=== PATIENT | male | born 1960 | race Caucasian/White ===

== ENCOUNTER 2016-08-13 | Inpatient (IN) | payer OTHER ==
--- NOTE | 2016-08-13 00:07 | EDPHY ---
H & P Stated Complaint: left sided chest discomfort, worse tonight HPI/ROS: HPI CHIEF COMPLAINT: Left-sided chest pain described as pressure HISTORY OF PRESENT ILLNESS: This patient very pleasant 56-year-old male significant past medical history for coronary artery disease with 1 stent, followed by Dr. Rashida Calvillo, hypertension, hyperlipidemia, presents emergency room with left-sided chest discomfort he describes as a pressure sensation. Also tells me he has some left lateral arm pain. No focal weakness no numbness or tingling no neck pain or jaw pain. No headache. No pleuritic pain shortness of breath or hemoptysis. No history of PE DVT. No dyspnea on exertion. Patient tells me over the past week he has been working out not really getting much chest pain he has had intermittent "stitches" in the left side of his chest, go. He has had this before and does not think much of it. Her decided come the emergency room tonight as he had ongoing pressure in left side of his chest with left arm pain. Again concern of this came to seek medical attention after calling the cardiology service. Of note this patient did take full-dose aspirin prior to arrival. Chest pressure is 6/10 at this time. Past Medical History: Coronary artery disease hypertension, hyperlipidemia Past Surgical History: PTCA Social History: Denies daily use of drugs alcohol tobacco products, lives in [place]. Family History: Noncontributory ROS REVIEW OF SYSTEMS: A comprehensive 10 point review of systems is otherwise negative aside from elements mentioned in the history of present illness. Exam Constitutional appears well nontoxic, triage nursing summary reviewed, vital signs reviewed, awake/alert. Eyes normal conjunctivae and sclera, EOMI, PERRLA. HENT normal inspection, atraumatic, moist mucus membranes, no epistaxis, neck supple/ no meningismus, no raccoon eyes. Respiratory clear to auscultation bilaterally, normal breath sounds, no respiratory distress, no wheezing. Cardiovascular rate normal, regular rhythm, no murmur, no edema, distal pulses normal. Gastrointestinal soft, non-tender, no rebound, no guarding, normal bowel sounds, no distension, no pulsatile mass. Genitourinary no CVA tenderness. Musculoskeletal no midline vertebral tenderness, full range of motion, no calf swelling, no tenderness of extremities, no meningismus, good pulses, neurovascularly intact. Skin pink, warm, & dry, no rash, skin atraumatic. Neurologic awake, alert and oriented x 3, AAOx3, moves all 4 extremities equally, motor intact, sensory intact, CN II-XII intact, normal cerebellar, normal vision, normal speech. Psychiatric normal mood/affect. Heme/Lymph/Immune no lymphadenopathy. Differential diagnosis includes but is not limited to: ACS, atypical chest pain , pneumothorax, pneumonia, pulmonary embolism, aortic dissection, congestive heart failure, tumor, musculoskeletal pain, esophageal pain, GERD, peptic ulcer disease, pancreatitis Medical Decision Making: Plan for this patient full cardiac care unit nurse IV establishment, EKG, chest x-ray, cardiac marker, D-dimer. Full-dose aspirin has already been given by the patient will given nitroglycerin to see if this improves his chest discomfort. Of note this patient does tell me last time he had chest pressure in the emergency room he had a normal EKG and had a blockage in needed a stent. Re-evaluation: EKG interpretation by me on record in [employer] system. Impression time of EKG 12:14 a.m., sinus rhythm 55 I do not appreciate any ischemic changes on this EKG specifically no ST elevation, ST depression, T-wave abnormalities prolonged intervals. Unremarkable nonischemic EKG. ED x-ray chest one view: Cardiomegaly present. Otherwise unremarkable no acute abnormality appreciated. Image interpreted myself. 0120AM: Re-evaluation at this time is patient is chest pain-free. He did receive nitroglycerin, morphine. Resting comfortably. EKG nonischemic negative troponin negative D-dimer chest x-ray reviewed shows cardiomegaly otherwise unremarkable. I have admitted this patient to [facility] for cardiac evaluation and serial enzyme rule out. Spoke with Dr. Gagnon hospitalist service agrees to admit this patient. Patient agrees for admission. Source: Patient - Personal History Current Tetanus/Diphtheria Vaccine: Unsure Current Tetanus Diphtheria and Acellular Pertussis (TDAP): Unsure - Medical/Surgical History Hx Asthma: No Hx Chronic Respiratory Disease: No Hx Diabetes: No Hx Cardiac Disease: Yes Hx Renal Disease: No Hx Cirrhosis: No Hx Alcoholism: No Hx HIV/AIDS: No Hx Splenectomy or Spleen Trauma: No Other PMH: [place] and 1 stent 2008 - Social History Smoking Status: Never smoked Constitutional: Initial Vital Signs Temperature (C) 36.5 C 08/13/16 00:01 Heart Rate 57 L 08/13/16 00:01 Respiratory Rate 16 08/13/16 00:01 Blood Pressure 148/76 H 08/13/16 00:01 O2 Sat (%) 97 08/13/16 00:01 O2 Delivery Mode Room Air O2 (L/minute) 2 Allergies/Adverse Reactions: Penicillins Allergy (Verified 08/13/16 00:05) Home Medications: Medication Instructions Recorded ASPIRIN 08/13/16 Atorvastatin Calcium 08/13/16 Metoprolol Tartrate 08/13/16 Medical Decision Making - Data Points Laboratory Results: Laboratory Results 08/13/16 00:15 08/13/16 00:15 08/13/16 08/13/16 08/13/16 00:15 00:15 00:15 WBC 7.65 10^3/uL 10^3/uL (3.80-9.50) RBC 4.48 10^6/uL 10^6/uL (4.40-6.38) Hgb 14.2 g/dL g/dL (13.7-17.5) Hct 40.5 % % (40.0-51.0) MCV 90.4 fL fL (81.5-99.8) MCH 31.7 pg pg (27.9-34.1) MCHC 35.1 g/dL g/dL (32.4-36.7) RDW 12.9 % % (11.5-15.2) Plt Count 205 10^3/uL 10^3/uL (150-400) MPV 10.1 fL fL (8.7-11.7) Neut % (Auto) 49.5 % % (39.3-74.2) Lymph % (Auto) 40.5 % % (15.0-45.0) [place] % (Auto) 7.2 % % (4.5-13.0) Eos % (Auto) 1.8 % % (0.6-7.6) Baso % (Auto) 0.7 % % (0.3-1.7) Nucleat RBC Rel Count 0.0 % % (0.0-0.2) Absolute Neuts (auto) 3.79 10^3/uL 10^3/uL (1.70-6.50) Absolute Lymphs (auto) 3.10 10^3/uL H 10^3/uL (1.00-3.00) Absolute Monos (auto) 0.55 10^3/uL 10^3/uL (0.30-0.80) Absolute Eos (auto) 0.14 10^3/uL 10^3/uL (0.03-0.40) Absolute Basos (auto) 0.05 10^3/uL 10^3/uL (0.02-0.10) Absolute Nucleated RBC 0.00 10^3/uL 10^3/uL (0-0.01) Immature Gran % 0.3 % % (0.0-1.1) Immature Gran # 0.02 10^3/uL 10^3/uL (0.00-0.10) PT 13.6 SEC SEC (12.0-15.0) INR 1.05 (0.83-1.16) APTT 27.1 SEC SEC (23.0-38.0) D-Dimer 0.28 ug/mLFEU ug/mLFEU (0.00-0.50) Sodium 140 mEq/L mEq/L (134-144) Potassium 4.0 mEq/L mEq/L (3.5-5.2) Chloride 106 mEq/L mEq/L (97-110) Carbon Dioxide 25 mEq/l mEq/l (22-31) Anion Gap 9 mEq/L mEq/L (8-16) BUN 19 mg/dL mg/dL (7-23) Creatinine 0.8 mg/dL mg/dL (0.7-1.3) Estimated GFR > 60 Glucose 98 mg/dL mg/dL (70-100) Calcium 10.0 mg/dL mg/dL (8.5-10.4) Magnesium 1.9 mg/dL mg/dL (1.6-2.3) Total Bilirubin 0.7 mg/dL mg/dL (0.1-1.4) Conjugated Bilirubin 0.2 mg/dL mg/dL (0.0-0.5) Unconjugated Bilirubin 0.5 mg/dL mg/dL (0.0-1.1) AST 27 IU/L IU/L (17-59) ALT 44 IU/L IU/L (21-72) Alkaline Phosphatase 60 IU/L IU/L (38-126) Creatine Kinase 108 IU/L IU/L (0-224) CK-MB (CK-2) Fraction Pending Troponin I < 0.012 ng/mL ng/mL (0-0.034) NT-Pro-B Natriuret Pep 122 pg/mL pg/mL (0-125) Total Protein 7.5 g/dL g/dL (6.3-8.2) Albumin 4.5 g/dL g/dL (3.5-5.0) Lipase 154.0 IU/L IU/L (23-300) Medications Given: Discontinued Medications Sodium Chloride (Ns) 500 mls @ 0 mls/hr IV ONCE ONE PRN Reason: As Directed Stop: 08/13/16 00:14 Last Admin: 08/13/16 00:25 Dose: 500 mls Morphine Sulfate (Morphine) 2 mg IVP EDNOW ONE Stop: 08/13/16 01:01 Last Admin: 08/13/16 01:05 Dose: 2 mg Nitroglycerin (Nitrostat) 0.4 mg SL Q5M PRN PRN Reason: Chest Pain Stop: 08/13/16 00:24 Last Admin: 08/13/16 00:25 Dose: 0.4 mg Departure - Departure Disposition: [facility] Inpatient Acute Clinical Impression: Chest pain Qualifiers: Chest pain type: unspecified Qualified Code(s): R07.9 - Chest pain, unspecified Condition: Fair Referrals: Kalie Davenport [Primary Care Provider] - As per Instructions
[2016-08-13] MEDS ORDERED: NS 500 ML IV ONE (00:13)
[2016-08-13] MEDS ORDERED: NITROGLYCERIN 0.4 MG BTL SL PRN ×3 (00:13→11:50)
--- NOTE | 2016-08-13 00:16 | CPEKG ---
Heart Rate: 55 RR Interval: 1091 P-R Interval: 160 QRSD Interval: 102 QT Interval: 408 QTC Interval: 391 P [place]: 14 QRS [place]: 25 T Wave [place]: 7 EKG Severity - NORMAL ECG - EKG Impression: SINUS RHYTHM Electronically Signed By: Chad Ruffin 13-Aug-2016 20:16:53
[2016-08-13 00:22] LABS: % IMMATURE GRANULYOCYTES 0.3 % (0.0-1.1); ABSOLUTE IMMATURE GRANULOCYTES 0.02 10^3/uL (0.00-0.10); ADD DIFF? NO; ADD MORPH? NO; ADD SCAN? NO; ATYPICAL LYMPHOCYTE FLAG 0 (0-99); FRAGMENT RBC FLAG 0 (0-99); HEMATOCRIT 40.5 % (40.0-51.0); HEMOGLOBIN 14.2 g/dL (13.7-17.5); LEFT SHIFT FLG 0 (0-99); LIPEMIA HEMOLYSIS FLAG 90 (0-99); MEAN CELL HEMOGLOBIN 31.7 pg (27.9-34.1); MEAN CELL HEMOGLOBIN CONCENTR. 35.1 g/dL (32.4-36.7); MEAN CELL VOLUME 90.4 fL (81.5-99.8); MEAN PLATELET VOLUME 10.1 fL (8.7-11.7); PLATELET CLUMPS FLAG 20 (0-99); PLATELET COUNT 205 10^3/uL (150-400); RED BLOOD CELL COUNT 4.48 10^6/uL (4.40-6.38); RED CELL DISTRIBUTION WIDTH 12.9 % (11.5-15.2)
[2016-08-13 00:48] LABS: ALANINE AMINOTRANSFERASE 44 IU/L (21-72); ALBUMIN 4.5 g/dL (3.5-5.0); ALKALINE PHOSPHATASE 60 IU/L (38-126); ANION GAP 9 mEq/L (8-16); ASPARTATE AMINOTRANSFERASE 27 IU/L (17-59); BILIRUBIN,TOTAL 0.7 mg/dL (0.1-1.4); BILIRUBIN-CONJUGATED 0.2 mg/dL (0.0-0.5); BILIRUBIN-UNCONJUGATED 0.5 mg/dL (0.0-1.1); CARBON DIOXIDE 25 mEq/l (22-31); CHLORIDE 106 mEq/L (97-110); CREATININE 0.8 mg/dL (0.7-1.3); GLOMERULAR FILTRATION RATE > 60; GLUCOSE 98 mg/dL (70-100); MAGNESIUM 1.9 mg/dL (1.6-2.3); SODIUM 140 mEq/L (134-144); TOTAL PROTEIN 7.5 g/dL (6.3-8.2)
[2016-08-13 00:59] LABS: TROPONIN I < 0.012 ng/mL (0-0.034)
[2016-08-13 01:05] LABS: INR 1.05 (0.83-1.16); PROTIME(PATIENT) 13.6 SEC (12.0-15.0)
[2016-08-13 01:06] LABS: APTT 27.1 SEC (23.0-38.0)
[2016-08-13 01:23] LABS: CREATINE KINASE-MB FRACTION 1.07 ng/mL (0-3.19)
--- NOTE | 2016-08-13 03:08 | PDGENHP ---
History and Physical - Chief Complaint chest pain - History of Present Illness Patient is a 56 year old male with history of CAD (s/p PCI in 2007) who presents to the ED with complaint of L sided chest pain. Patient first noticed a "sticking" type pain in a localized spot on his left chest wall 2-3 days ago that occurred at rest, resolved without intervention after seconds. This pain occurred intermittently throughout the following days and today seemed to occur more frequently. This evening, pain seemed to be more persistent and developed into an aching sensation in his L chest. 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 Pain is not associated with dizziness/lightheadedness, palpitations, shortness of breath, diaphoresis or nausea. He does report some abdominal bloating and mild constipation symptoms over the past 1 week, which is unusual for him. He took full dose aspirin prior to coming to the ED. Of note, since his PCI in 2007, patient has had at least 2 normal stress tests ( most recently > 1 year ago). He also regularly exercises with a daily walk or elliptical use without cardiac symptoms. On arrival to the ED, patient was afebrile and hemodynamically stable. EKG showed normal sinus rhythm without ischemic changes. Labs revealed normal CBC, BMP, negative troponin and d-dimer. CXR was also unremarkable. He was then admitted for further management. History Information - Allergies/Home Medication List Allergies/Adverse Reactions: Penicillins Allergy (Verified 08/13/16 00:05) Home Medications: ASPIRIN 08/13/16 [Last Taken Unknown] Atorvastatin Calcium 08/13/16 [Last Taken Unknown] Metoprolol Tartrate 08/13/16 [Last Taken Unknown] I have personally reviewed and updated: family history, medical history, social history, surgical history - Past Medical History Additional medical history: CAD s/p PCI x 1. nephrolithiasis - Surgical History Additional surgical history: lithotripsy. knee surgery. hernia repair - Family History Positive for: diabetes type II, CAD - Social History Smoking Status: Never smoked Alcohol Use: Rarely Drug Use: None Additional social history: Patient currently works from home. Review of Systems ROS: 10pt was reviewed & negative except for what was stated in HPI & below Physical Exam Temp Pulse Resp BP Pulse Ox 36.5 C 52 L 16 125/71 H 97 08/13/16 00:01 08/13/16 01:30 08/13/16 01:30 08/13/16 01:30 08/13/16 01:30 O2 (L/minute) 2 Constitutional: no apparent distress, appears nourished, not in pain Eyes: PERRL, anicteric sclera, EOMI Ears, Nose, Mouth, Throat: moist mucous membranes, hearing normal, ears appear normal, no oral mucosal ulcers Cardiovascular: regular rate and rhythym, no murmur, rub, or gallop, pulses symmetric bilaterally, No JVD, No edema Peripheral Pulses: 2+: dorsalis-pedis (R), dorsalis-pedis (L) Respiratory: no respiratory distress, no rales or rhonchi, clear to auscultation Gastrointestinal: normoactive bowel sounds, soft, non-tender abdomen, no palpable masses, No guarding, No rebound Genitourinary: no bladder fullness, no bladder tenderness Skin: warm, normal color, no rashes or abrasions, no fluctuance, no induration, No mottled Musculoskeletal: full muscle strength, no muscle tenderness, normal joint ROM, no joint effusions Neurologic: AAOx3, sensation intact bilaterally, CN II-XII Intact, No weakness, No numbness, No facial droop Psychiatric: interacting appropriately, not anxious, not encephalopathic, thought process linear Lab Data & Imaging Review 08/13/16 00:15 08/13/16 00:15 WBC 7.65 10^3/uL (3.80-9.50) 08/13/16 00:15 RBC 4.48 10^6/uL (4.40-6.38) 08/13/16 00:15 Hgb 14.2 g/dL (13.7-17.5) 08/13/16 00:15 Hct 40.5 % (40.0-51.0) 08/13/16 00:15 MCV 90.4 fL (81.5-99.8) 08/13/16 00:15 MCH 31.7 pg (27.9-34.1) 08/13/16 00:15 MCHC 35.1 g/dL (32.4-36.7) 08/13/16 00:15 RDW 12.9 % (11.5-15.2) 08/13/16 00:15 Plt Count 205 10^3/uL (150-400) 08/13/16 00:15 MPV 10.1 fL (8.7-11.7) 08/13/16 00:15 Neut % (Auto) 49.5 % (39.3-74.2) 08/13/16 00:15 Lymph % (Auto) 40.5 % (15.0-45.0) 08/13/16 00:15 [place] % (Auto) 7.2 % (4.5-13.0) 08/13/16 00:15 Eos % (Auto) 1.8 % (0.6-7.6) 08/13/16 00:15 Baso % (Auto) 0.7 % (0.3-1.7) 08/13/16 00:15 Nucleat RBC Rel Count 0.0 % (0.0-0.2) 08/13/16 00:15 Absolute Neuts (auto) 3.79 10^3/uL (1.70-6.50) 08/13/16 00:15 Absolute Lymphs (auto) 3.10 10^3/uL (1.00-3.00) H 08/13/16 00:15 Absolute Monos (auto) 0.55 10^3/uL (0.30-0.80) 08/13/16 00:15 Absolute Eos (auto) 0.14 10^3/uL (0.03-0.40) 08/13/16 00:15 Absolute Basos (auto) 0.05 10^3/uL (0.02-0.10) 08/13/16 00:15 Absolute Nucleated RBC 0.00 10^3/uL (0-0.01) 08/13/16 00:15 Immature Gran % 0.3 % (0.0-1.1) 08/13/16 00:15 Immature Gran # 0.02 10^3/uL (0.00-0.10) 08/13/16 00:15 PT 13.6 SEC (12.0-15.0) 08/13/16 00:15 INR 1.05 (0.83-1.16) 08/13/16 00:15 APTT 27.1 SEC (23.0-38.0) 08/13/16 00:15 D-Dimer 0.28 ug/mLFEU (0.00-0.50) 08/13/16 00:15 Sodium 140 mEq/L (134-144) 08/13/16 00:15 Potassium 4.0 mEq/L (3.5-5.2) 08/13/16 00:15 Chloride 106 mEq/L (97-110) 08/13/16 00:15 Carbon Dioxide 25 mEq/l (22-31) 08/13/16 00:15 Anion Gap 9 mEq/L (8-16) 08/13/16 00:15 BUN 19 mg/dL (7-23) 08/13/16 00:15 Creatinine 0.8 mg/dL (0.7-1.3) 08/13/16 00:15 Estimated GFR > 60 08/13/16 00:15 Glucose 98 mg/dL (70-100) 08/13/16 00:15 Calcium 10.0 mg/dL (8.5-10.4) 08/13/16 00:15 Magnesium 1.9 mg/dL (1.6-2.3) 08/13/16 00:15 Total Bilirubin 0.7 mg/dL (0.1-1.4) 08/13/16 00:15 Conjugated Bilirubin 0.2 mg/dL (0.0-0.5) 08/13/16 00:15 Unconjugated Bilirubin 0.5 mg/dL (0.0-1.1) 08/13/16 00:15 AST 27 IU/L (17-59) 08/13/16 00:15 ALT 44 IU/L (21-72) 08/13/16 00:15 Alkaline Phosphatase 60 IU/L (38-126) 08/13/16 00:15 Creatine Kinase 108 IU/L (0-224) 08/13/16 00:15 CK-MB (CK-2) Fraction 1.07 ng/mL (0-3.19) 08/13/16 00:15 Troponin I < 0.012 ng/mL (0-0.034) 08/13/16 00:15 NT-Pro-B Natriuret Pep 122 pg/mL (0-125) 08/13/16 00:15 Total Protein 7.5 g/dL (6.3-8.2) 08/13/16 00:15 Albumin 4.5 g/dL (3.5-5.0) 08/13/16 00:15 Lipase 154.0 IU/L (23-300) 08/13/16 00:15 Visualized and Interpreted Chest x-ray results: Yes Chest X-Ray results: no infiltrate, normal Visualized and Interpreted EKG results: Yes EKG Interpretation: Positive for: normal sinsus rhythm (sinus rhythm at 55 bpm, no st /t wave changes) Assessment & Plan Assessment: Patient is a 56 year old male with history of cad who presents to the ED with complaint of intermittent chest pain over the past 2-3 days. Plan: # chest pain Patient's description of his symptoms does not sound like typical cardiac chest pain, however, given pt's cardiac history will rule out cardiac etiology with serial cardiac enzymes, telemetry monitoring, EKGs. If ACS ruled out, will further risk stratify with exercise stress test in am. GERD vs abdominal distention due to mild constipation is also a possible etiology. # history of CAD Will continue home aspirin and b-milvia as inpatient. # dispo: admit to observation status for chest pain # gen: NPO full code
[2016-08-13] MEDS ORDERED: ASPIRIN EC 325 MG TAB PO ONE (11:50)
[2016-08-13] MEDS ORDERED: diphenhydrAMINE 25 MG CAP PO ONE (11:50)
[2016-08-13] MEDS ORDERED: DIAZEPAM 5 MG TAB PO ONE (11:50)
[2016-08-13] MEDS ORDERED: methylPREDNISolone SOD SUCC 125 MG/2 ML VIAL IVP ONE (11:52)
[2016-08-13] MEDS ORDERED: FAMOTIDINE 20 MG/NACL 50 ML IV ONE (11:52)
[2016-08-13] MEDS ORDERED: LIDOCAINE 1% 30 ML SDV ONE (12:25)
[2016-08-13] MEDS ORDERED: fentaNYL 100 MCG/2 ML INJ ONE ×3 (12:26→15:16)
[2016-08-13] MEDS ORDERED: MIDAZOLAM 2 MG/2 ML VIAL ONE ×2 (12:26→13:26)
[2016-08-13] MEDS ORDERED: IOPAMIDOL (ISOVUE-370) 150 ML BTL IV ONE ×4 (12:27→14:40)
[2016-08-13] MEDS ORDERED: BIVALIRUDIN 250 MG/5 ML VIAL IV ONE ×2 (13:13→14:10)
[2016-08-13] MEDS ORDERED: NITROGLYCERIN 1,500 MCG/15 ML VIAL MISC ONE ×2 (13:13→13:14)
--- NOTE | 2016-08-13 13:40 | PDDXCAT ---
Diagnostic Cath Note - . Date: 08/13/16 Pension Examiner: Quinn Indication: Patient w angina/susp CAD, cannot be risk stratified by other means (pt with h/o stents with abn tm and cp) - Procedure Procedure: left heart catheterization, coronary angiography, left ventriculogram - Materials Left Heart Cath size: 6F Left Heart Cath materials: standard multipack (JL4, JR4, pigtail) - Findings-Left Heart Catheterization LM: 1. mild irregs LAD: 1. mild irregs with patent prox lad stent...rich collateral supply to rca LCX: 1. mild irregs...l to r collats to rca RCA: 1. subtotal prox rca stenosis LVEF: deferred to post pci proceedure Complications: torsades VT 20 seconds post injection of rca requiring DCCV Estimated blood loss: <50ml Assessment: 1. cad with patent lad stent o/w mild irregs and subtotal rca stenosis with stenting today by dr contreras Plan: 1. interventional consult with dr contreras Patient Problems: Problems Problem Status Onset Chest pain Acute
[2016-08-13] MEDS ORDERED: PRASUGREL HCL 10 MG TAB ONE ×2 (15:07→15:30)
--- NOTE | 2016-08-13 15:24 | GCON ---
[f rep st] CONSULTATION CARDIOLOGY CONSULTATION DATE OF CONSULTATION: 08/13/2016 CHIEF COMPLAINT: Chest pain, coronary artery disease. HISTORY OF PRESENT ILLNESS: This is a 56-year-old gentleman. He was [facility] because of left-sided chest pain which had been occurring for the last week or s o. They seem to be very short any typical, although they were concerning. Patient has a history of PCI in 2007 in [place]. Apparently his presentation there was also atypical. He was advised to come the emergency room. He was admitted, where enzymes were normal. 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 He was taken to the treadmill room and did well on a tr eadmill exercise-kirby, obtaining a good heart rate and blood pressure response after approximately 9 minutes of exercise. He, however, had [address] depression in the inferior leads which rapidly re versed. He had no symptoms. I had a long conversation with him in the treadmill room regarding his findings. This is suspicious for coronary artery disease, especially given his history of prematur e atherosclerosis. We discussed both invasive and noninvasive approached. I recommended cardiac ca theterization. There is no evidence acute myocardial infarction, at least on enzymes so far, or his EKG today. The procedure, risks, benefits, complication of cardiac cath and possible intervention were discussed. There was a possible history of iodine allergy as well. He decided to progress wit coronary angiogram. He has been n.p.o. We will get this scheduled for later this afternoon. He will be given pretreatment with prednisone and H2 blockers and Benadryl. The patient understands e risks of cardiac cath and intervention and wished to proceed. ALLERGIES: Penicillin allergy. Possible iodine. MEDICATIONS: Aspirin, atorvastatin, and Lopressor. PAST MEDICAL HISTORY: He has had a history of kidney stones with lithotripsy. FAMILY HISTORY: Negative. SOCIAL HISTORY: He is a nonsmoker, nondiabetic. PHYSICAL EXAMINATION: VITAL SIGNS: Blood pressure is 120/70, heart rate in the 70s. GENERAL: He is a middle-aged male in no acute distress. HEENT: Moist oropharynx. BACK: CVA and chest wall wi thout palpable tenderness. LUNGS: Clear to auscultation and percussion. CARDIOVASCULAR: Regular rate and rhythm without murmur, gallops, rubs. LABS: White count 7, hemoglobin 14. Troponin less than 0.12. BNP 122. Potassium 4, creatinine 0. 8. ASSESSMENT: 1. Patient with premature atherosclerotic cardiovascular disease status post stenting in 2007 who h as had return of atypical chest pains which is somewhat similar to his prior presentation, who on an exercise stress test today with fairly good exercise tolerance, had ischemic ST-T wave changes with rapid resolution. We will progress to coronary angiography and possible intervention if needed. Edmond martinez understands the procedure, risks, benefits, complications, alternatives. We will pre treat with i odine allergy protocol. He understands he is at risk of PCI. 2. History of nephrolithiasis. Normal creatinine. 3. History hyperlipidemia on chronic statin therapy. PLAN: Cardiac cath this afternoon. Further care depending on the results of that test. /[id number]/MODL
[2016-08-13] MEDS ORDERED: PRASUGREL HCL 10 MG TAB PO ONE (15:46)
[2016-08-13] MEDS ORDERED: ONDANSETRON 4 MG/2 ML VIAL IVP PRN (15:46)
[2016-08-13] MEDS ORDERED: ATROPINE SULFATE 1 MG/10 ML SYR IVP PRN (15:46)
[2016-08-13] MEDS ORDERED: NS 1,000 ML IV SCH (16:00)
--- NOTE | 2016-08-13 17:21 | HOSPPROG ---
Hospitalist Progress Note Assessment/Plan: The patient experienced torsade ventricular tachycardia during his angiography and required electrical shock therapy which was successful. He had approximately 20 seconds of torsade before he received his shock. During angiography was demonstrated that his previous left anterior descending stent was open but he had a very tight right coronary artery with the few collaterals from the left. He did receive 3 stents to the right coronary artery and due to his overall findings and episode with ventricular tachycardia, his sheath is currently left in and we have transferred him to the intensive care unit. Currently in the intensive care unit still having some slight discomfort in his chest but no shortness of breath or nausea. Does not have pain in either of his feet and no pain at his groin access site but on my examination his right foot is certainly colder than his left. There is palpable pulse nothing that looks necrotic or ischemic visually and he does not have pain or tenderness there. There are no petechiae or other embolic appearing lesions. He is in a sinus rhythm with stable blood pressure at this point is making urine. He has a normal neurologic exam regular pulse, clear lungs, no edema, no JVD His groin site looks good to me. At this time will watch him in the ICU at least until his sheath can be removed ; depending on stability at that time he may potentially be able to moved to progressive care unit and but he will need to be watched carefully for any further arrhythmia or angina or any difficulty with his groin access. With his cold foot will want to watch that closely greater than 40 minutes critical care bedside time spent with patient over two visits Objective: Vital Signs Temp Pulse Resp BP Pulse Ox 36.5 C 94 15 128/74 H 97 08/13/16 07:49 08/13/16 16:32 08/13/16 16:32 08/13/16 16:32 08/13/16 16:32 08/12/16 08/13/16 08/14/16 06:59 06:59 06:59 Intake Total 500 Balance 500 PT 13.6 SEC (12.0-15.0) 08/13/16 00:15 INR 1.05 (0.83-1.16) 08/13/16 00:15 ICD10 Worksheet Patient Problems: Problems Problem Status Onset Chest pain Acute
--- NOTE | 2016-08-13 17:30 | CPIP ---
[f rep st] INVASIVE CARDIAC PROCEDURE DATE OF PROCEDURE: 08/13/2016 PROCEDURES PERFORMED: 1. Coronary catheterization. 2. Selective coronary angiography. 3. Cardiopulmonary resuscitation and defibrillation for diagnosis of in-catheterization ventricular fibrillation. 4. Percutaneous transluminal coronary angioplasty and stent placement of the right coronary artery with overlapping from distal to proximal 2.25 x 16, 25 x 8, 275 x 28, and 275 x 24 Synergy drug-elut ing stents. COMPLICATIONS: Were none. INDICATION FOR THE PROCEDURE: Unstable angina, presentation with CCS class 3 symptoms of angina, in a patient with a history of prior atypical presentation of stent implantation. The patient also carlisle d an abnormal stress test, considered intermediate risk. My partner, Dr. Kingston Ball, took the patient to laborer demolition for diagnostic angiography and proved gilberto t the LAD stent was widely patent. However, on injection of the right coronary artery. It was note d that there was a total occlusion of the right coronary artery distal to an acute marginal takeoff. After a selective coronary angiography was performed, the patient unfortunately experienced a vent ricular fibrillation arrest requiring approximately 30 seconds of CPR followed by prompt defibrillat ion, and as we were getting ready with the defibrillation machine, and he received a synchronous kayla ck at 200 joules with subsequent return of his rhythm briefly to a junctional rhythm and then to sin us. Because of these findings, I was asked to see the patient for an interventional consultation. PROCEDURE IN DETAIL: I used a 6-Taiwanese JR4 guiding catheter for guide catheter support. It was not ed there was a total occlusion as mentioned with MONIE-0 flow. Distal to an acute marginal takeoff, there were some collaterals to the distal PDA. A [employer] Pt 50 wire were placed across the lesion in [facility] stion. It was initially ballooned open with a plain balloon. There was an aneurysmal segment downs tream from the total occlusion, and at the site of an 80% stenosis downstream from the aneurysm. I was able to initially place a 2.5 x 8 Synergy stent in order to try to taper the blood vessel and tr ap the distal aneurysm into a more normal blood vessel caliber size. We did inflate that at a relat ively low pressure. We then placed another stent at 275 x 28 in overlapping fashion across the AV. The total occlusion which was most likely a SHADE MAKER of the RCA distal to the acute marginal takeoff and I was able to balloon that, placed the stent, and inflated at good pressure to 14 atmospheres with subsequent MONIE-3 flow to the distal vessel. Attempts to place a 225 x 8 stent distally were diffic ult because the stent would not go around the acute proximal portion of the 275 x 28 stent. Multipl e balloons and wires were used to try to navigate this area including a wiggle wire, intuition wire, and several intuition wires. Ultimately I decided that I would have to stent the RCA all the way b ack to the ostium to change the architecture. This also would not work with a 6-Taiwanese guide and 6- Taiwanese GuideLiner because of inadequate support. Ultimately, we switched to a 7-Taiwanese system with a 7-Taiwanese sheath, a 7-Taiwanese JR4 with side holes, and an advanced a 0.014 wiggle wire across within the ostium of 275 x 28 stent and then I stented i n overlapping fashion from the proximal RCA back to the ostium which was considered an 80% lesion. This was noted to be 0% residual stenosis and MONIE-3 flow post procedure. Distally, there was evide nce of a contained dissection with staining the blood vessel. I was able to manipulate the wiggle w tona into the distal PDA which helped to resolve the staining and then was able to advance a 225 x 16 stent into the distal RCA and the proximal portion of the PDA and inflated that, ultimately at high er pressures, to 16 atmospheres with excellent angiograph results, 0% residual stenosis of the dista l vessel, and a MONIE-3 flow to the distal vessel. There was mild staining of the vessel without akhil dence of free rupture in multiple angulations. IMPRESSION: Successful balloon angioplasty and stent placement of the right coronary artery with 4 overlapping Synergy stents within the body from the ostium of the vessel to the distal right coronar y artery. This patient would likely need to be a long-term candidate for dual antiplatelet therapy which should be continued for at least the year, and in this particular patient, unless there is ble eding complications or contraindications, I would consider longer dual antiplatelet therapy, possibl y out to 2-3 years to help reduce the risk of subacute stent thrombosis. Copy requested to: Primary Care Physician /[id number]/MODL
[2016-08-13] MEDS: ACETAMINOPHEN 325 MG TAB PO PRN (19:10)
[2016-08-13] MEDS: ATORVASTATIN CALCIUM 40 MG TAB PO SCH (21:29)
[2016-08-13] MEDS: METOPROLOL TARTRATE 25 MG TAB PO SCH (21:29)
[2016-08-13] MEDS: ENALAPRIL MALEATE 5 MG TAB PO SCH (21:29)
[2016-08-13] MEDS: DOXEPIN HCL 10 MG CAP PO SCH (21:29)
[2016-08-13] MEDS: TEMAZEPAM 15 MG CAP PO PRN (22:37)
[2016-08-14] MEDS: TEMAZEPAM 22.5 MG PO SCH ×3 (01:29→21:19)
[2016-08-14 04:42] LABS: % IMMATURE GRANULYOCYTES 0.3 % (0.0-1.1); ABSOLUTE IMMATURE GRANULOCYTES 0.03 10^3/uL (0.00-0.10); ADD DIFF? NO; ADD MORPH? NO; ADD SCAN? NO; ATYPICAL LYMPHOCYTE FLAG 0 (0-99); FRAGMENT RBC FLAG 0 (0-99); HEMOGLOBIN 12.9 g/dL (13.7-17.5); LEFT SHIFT FLG 0 (0-99); LIPEMIA HEMOLYSIS FLAG 90 (0-99); MEAN CELL HEMOGLOBIN CONCENTR. 34.9 g/dL (32.4-36.7); MEAN CELL VOLUME 91.8 fL (81.5-99.8); MEAN PLATELET VOLUME 10.6 fL (8.7-11.7); PLATELET CLUMPS FLAG 0 (0-99); PLATELET COUNT 193 10^3/uL (150-400); RED BLOOD CELL COUNT 4.03 10^6/uL (4.40-6.38); RED CELL DISTRIBUTION WIDTH 12.9 % (11.5-15.2)
[2016-08-14 05:36] LABS: ALBUMIN 3.7 g/dL (3.5-5.0); ANION GAP 8 mEq/L (8-16); ASPARTATE AMINOTRANSFERASE 55 IU/L (17-59); BILIRUBIN,TOTAL 0.7 mg/dL (0.1-1.4); CALCIUM 9.4 mg/dL (8.5-10.4); CARBON DIOXIDE 24 mEq/l (22-31); CHLORIDE 107 mEq/L (97-110); CREATININE 0.8 mg/dL (0.7-1.3); GLOMERULAR FILTRATION RATE > 60; GLUCOSE 146 mg/dL (70-100); LACTATE DEHYDROGENASE 518 IU/L (313-618); MAGNESIUM 2.2 mg/dL (1.6-2.3); POTASSIUM 4.9 mEq/L (3.5-5.2); SODIUM 139 mEq/L (134-144)
[2016-08-14] MEDS: ACETAMINOPHEN 325 MG TAB PO PRN (07:26)
[2016-08-14] MEDS: ASPIRIN EC 325 MG TAB PO SCH (07:49)
[2016-08-14] MEDS: PRASUGREL HCL 10 MG TAB PO SCH (07:49)
[2016-08-14] MEDS: ENALAPRIL MALEATE 5 MG TAB PO SCH ×2 (07:49→21:02)
[2016-08-14] MEDS: METOPROLOL TARTRATE 25 MG TAB PO SCH ×2 (07:50→21:02)
--- NOTE | 2016-08-14 08:42 | CPEKG ---
Heart Rate: 65 RR Interval: 923 P-R Interval: 172 QRSD Interval: 98 QT Interval: 408 QTC Interval: 425 P Pickford: 28 QRS Pickford: 35 T Wave Pickford: -5 EKG Severity - BORDERLINE ECG - EKG Impression: SINUS RHYTHM EKG Impression: BORDERLINE INFERIOR Q WAVES EKG Impression: BORDERLINE T ABNORMALITIES, INFERIOR LEADS Electronically Signed By: Pelon Han 14-Aug-2016 18:19:50
[2016-08-14] MEDS ORDERED: HYDROCODONE/APAP 5/325 TAB PO PRN (09:46)
--- NOTE | 2016-08-14 09:50 | PDCARPN ---
Cardiology Progress Note Chief Complaint: Patient reports left lateral chest pressure with deep inspiration Assessment/Plan: Assessment: 56-year-old male admitted for chest pressure 08/13/2016. Noted history CAD with previous PCI of the LAD in 2007, hypertension, hyperlipidemia. Patient underwent exercise treadmill testing showing [address] depression in inferior leads on 08/13/2016. Underwent diagnostic cardiac catheterization 08/13/2016, finding LAD stent patent, but subtotaled proximal RCA. Patient did have a run of torsade, requiring 10-20 seconds of CPR with 1 defibrillator shock back into sinus rhythm. Dr. Lewis performed PCI of the RCA 4 ALEXANDRA implantation., MONIE 3 flow an vessel postprocedure. Electrocardiogram done today shows sinus rhythm with Q-waves noted in lead III and AVF inverted T-waves in lead 3, and biphasic T-waves in AVF. Patient reports occasional "twinge" of chest pain with deep inspiration, left lateral. Vital signs remained stable, no further arrhythmias noted telemetry overnight. Right groin site, catheter insertion site, with mild ecchymosis, but no redness, swelling, drainage bleeding, or hematoma. CMS checks within normal limits to lower extremity. Plan: 1. Chest pain: Patient reporting new type of chest pressure with deep inspiration, occasionally, no significant EKG changes, patient did have CPR yesterday for 10-20 seconds, questioning possible trauma. Have ordered him to have [place]. Re-evaluate after pain medication. 2. CAD: Subtotaled RCA with for ALEXANDRA implantation yesterday, MONIE 3 flow post procedure. Patient started on dual anti-platelet therapy of aspirin and Effient , continue on beta-milvia and enalapril. No LV g done during cardiac catheterization due to dye load, will have him get a echocardiogram today to evaluate LV size function. 3. Hyperlipidemia: Patient currently on atorvastatin, have asked for them to run a fasting lipid panel off of a.m. labs to evaluate therapy, ideal goal would be LDL less than 70. 4. Hypertension: Blood pressure appears to be well controlled on current medication regime comma continue to monitor. 5. Torsades: Patient during cardiac catheterization had run of torsade, requiring CPR and defibrillation, no further arrhythmias noted post cardiac catheterization. Patient is on beta-blockers, magnesium within normal limits. Would like to continue monitor her 1 more day before discharging to assure no further arrhythmias. Repeat BMP and magnesium level in a.m. 08/14/16 09:47 Subjective: Patient reports left lateral chest pain with deep inspiration, happening occasionally, different from prior chest pressure that brought him into the hospital. Denies of any shortness of breath orthopnea lightheadedness, palpitations near-syncope or syncopal events. Reviewed/Discussed With: other (Dr Klein) Objective: Vital Signs (8 Hrs) Temp Pulse Resp BP Pulse Ox 08/14/16 07:09 36.5 C 87 16 108/67 97 08/14/16 04:00 36.3 C 60 12 109/65 96 Intake/Output (24 Hrs) 08/13/16 08/14/16 08/15/16 05:59 05:59 05:59 Intake Total 500 0 Balance 500 0 Intake: Oral (ml) 0 IV Infused (ml) 500 Other: Weight 79.379 kg 79.379 kg Intake Quantity Yes Sufficient Result Diagrams: 08/14/16 03:46 08/14/16 03:46 Cardiac Labs: Cardiac Lab Results (72 Hrs) 08/13/16 05:50 Troponin I < 0.012 - Physical Exam Constitutional: WDWN, healthy appearing Ears, Nose, Mouth, Throat: moist mucous membranes Cardiovascular: regular rate and rhythm, no murmurs, no rubs, no gallops, pulses symmetric bilat, No jugular vein distention, No carotid bruit Peripheral Pulses: 2+: carotid (R), carotid (L), femoral (R), femoral (L), dorsalis-pedis (R), dorsalis-pedis (L) Respiratory: clear to auscultate bilat, no crackles, no wheezes, No reduced air movement Gastrointestinal: normoactive bowel sounds Skin: warm, no edema, other (Right groin site, with mild ecchymosis, no redness , swelling, or drainage. No hematoma, bleeding. No auscultated bruit) Neurologic: AAOx3 Psychiatric: cooperative, interactive, following commands ICD10 Worksheet Patient Problems: Problems Problem Status Onset Chest pain Acute
--- NOTE | 2016-08-14 09:58 | HOSPPROG ---
Hospitalist Progress Note Assessment/Plan: DIAGNOSES: -UNSTABLE ANGINA PECTORALIS, CRITICAL RIGHT CORONARY STENOSIS -TORSADE VENTRICULAR TACHYCARDIA DURING ANGIOGRAPHY REQUIRING CPR AND CARDIOVERSION -PLACEMENT OF MULTIPLE STENTS IN RIGHT CORONARY ARTERY -PATENCY OF PRIOR LEFT CORONARY STENT PLANS: - per Cardiology 1 further day of cardiac monitoring to ensure he is not having further ventricular arrhythmias -Increase activity today and monitor his response to exercise -Do platelet inhibitors, statin SUBJECTIVE: Overall feels much better. Has some soreness in his chest atypical with chest wall pain, possibly related to CPR No nausea shortness of breath Eating well No pain at his groin access site or at his foot OBJECTIVE Vitals reviewed: stable without fever Director Of Casework Department, my review: sinus rhythm without any arrhythmia noted overnight on my review Exam: alert oriented skin warm dry color ok resps not labored lungs clear BSs heart regular abd soft nondistended nontender, bowel sounds present limbs no sign of injury or bleeding at his groin, the foot is warm today without signs of emboli iv site ok laboratory data: Renal function normal electrolytes good Objective: Vital Signs Temp Pulse Resp BP Pulse Ox 36.5 C 87 16 108/67 97 08/14/16 07:09 08/14/16 07:09 08/14/16 07:09 08/14/16 07:09 08/14/16 07:09 Laboratory Results 08/14/16 03:46 08/14/16 03:46 08/13/16 08/14/16 08/15/16 06:59 06:59 06:59 Intake Total 500 0 Balance 500 0 PT 13.6 SEC (12.0-15.0) 08/13/16 00:15 INR 1.05 (0.83-1.16) 08/13/16 00:15 ICD10 Worksheet Patient Problems: Problems Problem Status Onset Chest pain Acute
--- NOTE | 2016-08-14 13:58 | ECHO ---
[id number] + + [address] : : [place] [address] : : [phone] + Adult Echocardiographic Report + ------+ :Name: AGUEDA AUGUSTE RStudy Date: 08/14/2016 11:06 AM : : Hospital Admission Number: [id number] Locatio n: 210: :: 1960 Gender: Male Height: 69 in : :Age: 56 yrs Race: WH Weight: 175 lb : :Reason For Study: Eval LV Fx : : BSA: 2.0 meters 2 : :History: CAD, Post Stents, subtotal RCA : + ------+ MMode/2D Measurements \T\ Calculations IVSd: 1.0 cm LVIDd: 4.6 cm FS: 37.7 % Ao root diam: 3.3 cm LVPWd: 1.1 cm LVIDs: 2.9 cm EDV(Teich): 98.2 ml ACS: 2.1 cm ESV(Teich): 31.5 ml EF(Teich): 67.9 % Normal Measurement Values: + + :LVIDd (3.5-5.7cm) IVSd (0.6-1.1cm) LVPWd (0.6-1.1cm) Aortic Root (2.0-3.7cm)Left Atrium (1.5-4.0cm): :LV Vol(d) (76-115ml) LV Vol(s) (29-48ml) Ejec Fraction (50-65%)PV Db (0.6- 1.2m/s) TV Db (0.4-1.0m/s) : :MV E Db (0.8-1.0m/s)MV A Db (0.3-1.0m/s)LVOT Db (0.7-1.2m/s) Asc Ao Db ( 0.9-1.8m/s) : + + Doppler Measurements \T\ Calculations MV E max db: Ao V2 max: AI max db: LV V1 max: 72.1 cm/sec 120.8 cm/sec 412.7 cm/sec 75.5 cm/sec MV A max db: Ao max PG: AI max P.1 mmHg LV V1 max P.8 cm/sec 5.8 mmHg AI dec slope: 2.3 mmHg MV E/A: 1.3 179.3 cm/sec2 AI P1/2t: 674.0 msec PA V2 max: TR max db: 99.1 cm/sec 211.7 cm/sec PA max PG: TR max P.9 mmHg 17.9 mmHg RAP systole: 5.0 mmHg RVSP(TR): 22.9 mmHg Left Ventricle The left ventricle is normal in size. There is normal left ventricular wall thickness. The left ventricular ejection fraction is normal. There is Doppler evidence for diastolic dysfunction. Ejection Fraction = 68%. The left ventricular wall motion is normal. Right Ventricle The right ventricle is normal in size and function. Atria The left atrial size is normal. Right atrial size is normal. Mitral Valve The mitral valve is normal in structure and function. There is no mitral valve stenosis. There is no mitral regurgitation noted. Tricuspid Valve Normal tricuspid valve. No tricuspid regurgitation. Aortic Valve The aortic valve is trileaflet. The aortic valve opens well. There is no aortic stenosis. Mild aortic regurgitation. Pulmonic Valve The pulmonic valve is normal in structure and function. There is no pulmonic valvular regurgitation. Great Vessels The aortic root is normal size. Pericardium/Pleural There is no pericardial effusion. Conclusion A complete two-dimensional transthoracic echocardiogram was performed (2D, M-mode, Doppler and color flow Doppler). The left ventricular ejection fraction is normal. There is Doppler evidence for diastolic dysfunction. Ejection Fraction = 68%. Grossly normal wall motion. The left atrial size is normal. Right atrial size is normal. Valvular appearance is normal. Mild aortic regurgitation. There is no pericardial effusion. Final Reading Physician: Roque Cottrell signed on 08/14/2016 01:57 PM Ordering Physician: Gabriel Ferreira Performed By: Froylan Orosco, BLAKECS
[2016-08-14 14:04] LABS: CHOLESTEROL 162 mg/dL (140-220); CHOLESTEROL/HDL RATIO 3.95 RATIO (1.00-4.97); HIGH DENSITY LIPOPROTEIN 41 mg/dL (40-65); LDL/HDL RATIO 2.78 RATIO (1.00-3.64); LOW DENSITY LIPOPROTEIN 114 mg/dL (80-100); NON-HIGH DENSITY LIPOPROTEIN 121 mg/dL (90-129); TRIGLYCERIDE 38 mg/dL (40-150); VERY LOW DENSITY LIPOPROTEINS 7 mg/dL (8-25)
[2016-08-14] MEDS: DOXEPIN HCL 10 MG CAP PO SCH (21:02)
[2016-08-14] MEDS: ATORVASTATIN CALCIUM 40 MG TAB PO SCH (21:02)
[2016-08-14] MEDS: TEMAZEPAM 15 MG CAP PO PRN (21:10)
[2016-08-15 04:09] LABS: ANION GAP 10 mEq/L (8-16); CALCIUM 9.4 mg/dL (8.5-10.4); CARBON DIOXIDE 24 mEq/l (22-31); CHLORIDE 108 mEq/L (97-110); CREATININE 0.8 mg/dL (0.7-1.3); GLOMERULAR FILTRATION RATE > 60; GLUCOSE 83 mg/dL (70-100); MAGNESIUM 2.2 mg/dL (1.6-2.3); POTASSIUM 4.5 mEq/L (3.5-5.2); SODIUM 142 mEq/L (134-144)
[2016-08-15 09:10] VITALS: BP 107/66; PULSE 67; RESP 17; TEMP 97.9; O2SAT 95
[2016-08-15] MEDS: ENALAPRIL MALEATE 5 MG TAB PO SCH (09:18)
[2016-08-15] MEDS: PRASUGREL HCL 10 MG TAB PO SCH (09:19)
[2016-08-15] MEDS: ASPIRIN EC 325 MG TAB PO SCH (09:19)
[2016-08-15] MEDS: METOPROLOL TARTRATE 25 MG TAB PO SCH (09:19)
--- NOTE | 2016-08-15 09:39 | PDCARPN ---
Cardiology Progress Note Chief Complaint: Patient reports no chest pressure, he wants to go home. Assessment/Plan: Assessment: 56-year-old male admitted for chest pressure 08/13/2016. Noted history CAD with previous PCI of the LAD in 2007, hypertension, hyperlipidemia. Patient underwent exercise treadmill testing showing [address] depression in inferior leads on 08/13/2016. Underwent diagnostic cardiac catheterization 08/13/2016, finding LAD stent patent, but subtotaled proximal RCA. Patient did have a run of torsade, requiring 10-20 seconds of CPR with 1 defibrillator shock back into sinus rhythm. Dr. Lewis performed PCI of the RCA 4 ALEXANDRA implantation., MONIE 3 flow an vessel postprocedure. Echocardiogram done yesterday showing grossly normal wall motion of LV with EF estimated at 68%, diastolic dysfunction, mild AI, no pericardial effusion. Fasting lipid panel done yesterday shows triglycerides 38, total cholesterol 162, LDL 114, HDL 41. Continuous cardiac monitoring shows rare premature ventricular contraction, but no other malignant arrhythmias or pauses noted. Patient had small oozing at catheter insertion site, right groin site, requiring manual pressure for 10-15 minutes last evening , he has been up in walking the unit last evening, with no further problems. Right groin site, catheter insertion site, with mild ecchymosis, but no redness , swelling, drainage bleeding, or hematoma. CMS checks within normal limits to lower extremity. Patient reports no further episodes of chest pressure pain, denies of any shortness. No signs of heart failure. Plan: 1. CAD: Subtotaled RCA with 4 ALEXANDRA implantation, MONIE 3 flow post procedure. Patient started on dual anti-platelet therapy of aspirin and Effient, continue on beta-milvia and enalapril. Echocardiogram done yesterday showing grossly no wall motion abnormality, EF 68%. No further episodes of chest pressure or pain. Patient to be repeat enrolled in cardiac rehab. 2. Hyperlipidemia: Patient currently on atorvastatin, fasting lipid panel showed total cholesterol 162, LDL at 114. [place] goal would be to have LDL less than 70, I have increased his atorvastatin to 80 mg at bedtime, he will need to have a repeated fasting lipid and liver panel and 6-8 weeks. 3. Hypertension: Blood pressure appears to be well controlled on current medication regime 4. Torsades: Patient during cardiac catheterization had run of torsade, requiring CPR and defibrillation, no further arrhythmias noted post cardiac catheterization. Patient is on beta-blockers, magnesium and potassium within normal limits. Have discussed this with Dr. Ball, he would like the patient to undergo 30 day Holter monitor, which our office will arrange to have sent to his home in the next 2-3 days, to assure no further arrhythmias. From the cardiac standpoint, patient can be discharged today, he has follow-up appointment set an our office for 1 week. We have Discussed about post PCI discharge instructions including monitoring for signs of infection , lifting precautions, bathing precautions, activity restrictions, and the importance of medication compliance he, especially anti-platelet therapy of aspirin and Effient with recent ALEXANDRA implantation. At this time, patient verbalizes no further questions. He is told that if any questions or concerns, post hospital discharge, he is to call our office or seek medical attention. 08/15/16 09:28 Subjective: Patient reporting no chest pain or shortness of breath, has been up and walking unit no symptoms. Denies of any palpitations, lightheadedness, near-syncope or syncopal event. field operations coordinator shows sinus rhythm with occasional premature ventricular contraction no other malignant arrhythmias or pauses noted. Reviewed/Discussed With: hospitalist (Dr Guerrero), other (Dr Klein) Objective: Vital Signs (8 Hrs) Temp Pulse Resp BP Pulse Ox 08/15/16 08:00 36.6 C 67 17 107/66 95 08/15/16 04:00 36.7 C 56 L 16 124/75 H 94 Intake/Output (24 Hrs) 08/14/16 08/15/16 08/16/16 05:59 05:59 05:59 Intake Total 900 Balance 900 Intake: Oral (ml) 900 Other: Number of Voids Toilet 1 Result Diagrams: 08/14/16 03:46 08/15/16 03:24 - Physical Exam Constitutional: WDWN, healthy appearing, no apparent distress Ears, Nose, Mouth, Throat: moist mucous membranes Cardiovascular: regular rate and rhythm, no murmurs, pulses symmetric bilat, No jugular vein distention, No carotid bruit Peripheral Pulses: 1+: dorsalis-pedis (R), dorsalis-pedis (L), 2+: carotid (R), carotid (L) Respiratory: clear to auscultate bilat, no crackles, no wheezes, No reduced air movement Gastrointestinal: normoactive bowel sounds, no tenderness, no masses Skin: no edema, other (Right groin site, with mild ecchymosis around the catheter site, no redness, swelling, drainage, or hematoma. No auscultated bruit) Neurologic: AAOx3, CN II-XII grossly intact Psychiatric: cooperative, interactive ICD10 Worksheet Patient Problems: Problems Problem Status Onset Chest pain Acute
--- NOTE | 2016-08-15 11:04 | PDDCSUM ---
Discharge Summary Discharge Summary: DISCHARGE SUMMARY FOLLOW-UP ITEMS: Follow up with Cardiology Clinic as scheduled DATE OF ADMISSION: 08/13/2016 DATE OF DISCHARGE: 08/15/2016 DISCHARGE DIAGNOSES: 1. Subtotal proximal occlusion of the right coronary artery 2. Unstable angina 3. Torsades de pointes CONSULTATIONS: Cardiology PROCEDURES / IMAGING: Cardiac catheterization on 08/13/2016 with drug-eluting stent placed in the RCA CHIEF COMPLAINT: Acute chest pain SUBJECTIVE: Patient is feeling well at time of discharge, he is only experiencing some mild pain when he repositions PHYSICAL EXAM ON DISCHARGE: Systolic blood pressure is 120, heart rate 60, afebrile overnight, satting well on room air, pain level 0/10, alert awake oriented x3 LABS ON DISCHARGE: Creatinine 0.8, LDL 110 HOSPITAL COURSE BY PROBLEM: 1. Sub total proximal occlusion of right coronary artery. Patient experienced unstable angina secondary to this level of occlusion and after a positive stress test underwent diagnostic and therapeutic cardiac catheterization on 08/13. Patient had occlusion in his right coronary artery and he underwent drug -eluting stent placement. Our paste maker have recommended full- dose aspirin and Effient as well as up titration of his statin. He will follow up in the cardiology clinic will be continued on an DIXIE-inhibitor and a beta- milvia as well. 2. Unstable angina. Acute, secondary to the above, required stenting and maximal medical management as noted above. 3. Torsades. This occurred during patient's cardiac catheterization requiring 10-20 seconds of CPR and 1 defibrillator shock to get him back into normal sinus rhythm. A follow-up echocardiogram demonstrated ejection fraction of 60%, diastolic dysfunction, mild aortic insufficiency, no pericardial effusion, no focal wall motion abnormalities. It is suspected the patient temporarily had reduced blood flow while the RCA stenting procedure was being performed. The patient requires extended hospitalization to monitor him on telemetry given his high risk of recurrent arrhythmia. The patient will be out treated with outpatient rhythm monitoring through the cardiology clinic. DISCHARGE MEDICATIONS: Please see official discharge medication reconciliation sheet in chart , aspirin 325 once daily, Effient 10 mg daily, atorvastatin 80 mg daily, [place] as needed. DISCHARGE INSTRUCTIONS: Please follow up with Cardiology Clinic as scheduled. TIME SPENT: Greater than 30 minutes were spent on direct patient care, as well as discharge planning and preparation.
[2016-08-15] MEDS ORDERED: ATORVASTATIN CALCIUM 40 MG TAB PO SCH (21:00)
== END 2016-08-15 11:38 | disposition home or self-care (01) | DRG 246 ==
LOC: F1N 01:37 → F2W 14:47 → F2N 16:05 → F2W 21:48 → OBSVTOIN 08-14 17:46
PROVIDERS: ADMIT Internal Medicine; ATTEND Internal Medicine
DX: I25.110 Atherosclerotic heart disease of native coronary artery with unstable angina pectoris (principal); I47.2 Ventricular tachycardia; I10 Essential (primary) hypertension; E78.5 Hyperlipidemia, unspecified
CPT/HCPCS: 96374; C1725; C1760; C1769; C1874; C1887; C9600; G0378; J0583; J1200; J1644; J2250; J2405; J3010; Q9967

== ENCOUNTER 2017-01-25 16:43 | Observation (INO) | payer OTHER ==
[2017-01-25] MEDS ORDERED: ACETAMINOPHEN 325 MG TAB PO PRN (17:39)
[2017-01-25] MEDS ORDERED: ZOLPIDEM TARTRATE 5 MG TAB PO PRN (17:39)
[2017-01-25] MEDS ORDERED: LORazepam 0.5 MG TAB PO PRN (17:39)
[2017-01-25] MEDS ORDERED: ONDANSETRON 4 MG/2 ML VIAL IVP PRN (17:39)
--- NOTE | 2017-01-25 18:02 | CPEKG ---
Heart Rate: 55 RR Interval: 1091 P-R Interval: 168 QRSD Interval: 100 QT Interval: 412 QTC Interval: 394 P Pride: 8 QRS Pride: 33 T Wave Pride: 8 EKG Severity - BORDERLINE ECG - EKG Impression: SINUS RHYTHM EKG Impression: BORDERLINE INFERIOR Q WAVES Electronically Signed By: Pelon Melara 26-Jan-2017 09:52:35
[2017-01-25 18:33] LABS: HEMATOCRIT 41.4 % (40.0-51.0); HEMOGLOBIN 14.2 g/dL (13.7-17.5); MEAN CELL HEMOGLOBIN 31.5 pg (27.9-34.1); MEAN CELL HEMOGLOBIN CONCENTR. 34.3 g/dL (32.4-36.7); MEAN CELL VOLUME 91.8 fL (81.5-99.8); RED BLOOD CELL COUNT 4.51 10^6/uL (4.40-6.38); RED CELL DISTRIBUTION WIDTH 12.8 % (11.5-15.2)
[2017-01-25 18:43] LABS: ANION GAP 10 mEq/L (8-16); CALCIUM 10.2 mg/dL (8.5-10.4); CARBON DIOXIDE 27 mEq/l (22-31); CHLORIDE 104 mEq/L (97-110); CREATININE 0.8 mg/dL (0.7-1.3); GLOMERULAR FILTRATION RATE > 60; GLUCOSE 83 mg/dL (70-100); POTASSIUM 4.7 mEq/L (3.5-5.2); SODIUM 141 mEq/L (134-144)
[2017-01-25 18:54] LABS: TROPONIN I < 0.012 ng/mL (0.000-0.034)
[2017-01-25] MEDS ORDERED: HYDROCODONE/APAP 5/325 TAB PO PRN (19:37)
[2017-01-25] MEDS ORDERED: LORazepam 1 MG TAB PO PRN (19:37)
[2017-01-25] MEDS ORDERED: NITROGLYCERIN 0.4 MG BTL SL PRN (20:00)
--- NOTE | 2017-01-25 20:37 | GHP ---
[f rep st] HISTORY AND PHYSICAL DATE OF ADMISSION: 01/25/2017 CHIEF COMPLAINT: Chest pain. HISTORY: This patient is a 56-year-old male who has required multiple cardiac stents in the past. M ost recently, he had a right coronary stent placed in July 2016. After the stent was placed, his ch est pain went away. He now re-presents with 1 week of recurrence of chest pain with similar to prior to the stent. It is a left-sided chest pain that radiates to his arm. It feels burning-like, but i t is nonpleuritic. It does not get any worse with exercise. PAST MEDICAL HISTORY: 1. Coronary artery disease, status post stents in 2008, and again, a right coronary artery stent in July 2016. 2. Anxiety. 3. Torsades during stent placement. MEDICATIONS: Please see computer record for full detailed list. ALLERGIES: Iodine and penicillin. SOCIAL HISTORY: No smoking or alcohol. He lives alone but does have 2 kids that he has with him par t-time. 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 REVIEW OF SYSTEMS: Complete review of systems obtained. Review of systems is negative regarding con stitutional, HEENT, GI, pulmonary, cardiovascular, , hematology, skin, muscular, endocrine, psych, except for positives and negatives as in HPI. FAMILY HISTORY: Positive for diabetes and coronary artery disease. PHYSICAL EXAMINATION: GENERAL: Well-developed, well-nourished in no acute distress. VITAL SIGNS: Temperature 36.5, pulse 56, blood pressure 125/64, saturating 97% on room air. HEENT: Normal conjun ctivae. Pupils equal, round, react to light. ENT, normal ears and nose. Hearing intact. Normal te eth. Oropharynx moist. NECK: Trachea midline. No thyromegaly. CHEST: Normal effort. LUNGS: Cl ear to auscultation bilaterally. CARDIOVASCULAR: Regular rhythm. No murmur. No extremity edema. ABDOMEN: Soft, nontender. No hepatosplenomegaly. SKIN: Warm, dry, intact without rash. MUSCULOSK ELETAL: No cyanosis, clubbing. Strength 5/5 upper and lower extremities. NEUROLOGIC: Cranial nerv es intact. Normal sensation to light touch. PSYCHIATRIC: Alert and oriented x3. Normal mood and a ffect. Normal judgment. Normal memory. LABORATORY DATA: White count 7.7, hematocrit 41.4, platelets 208. Sodium 141, potassium 4.7, chlori de 104, bicarb 27, BUN 19, creatinine 0.8, glucose 83. Troponins negative. IMAGING PROCEDURE: EKG viewed by me, my personal interpretation, normal sinus rhythm, no ST or T-wav e changes. This case was personally discussed with Dr. Melara, who saw him in the office today and made the deci fabiana for direct admission for cardiac cath in the morning. ASSESSMENT/PLAN: 1. Chest pain. This is similar to his previous angina. He has a history of false negative stress t ests in the past. Therefore, Cardiology plans to proceed directly to cardiac catheterization in the morning. I will make him n.p.o. after midnight. 2. Coronary artery disease, status post stent, most recently July 2016, so he remains within the 1 year regarding his antiplatelet treatment. Will continue Effient. He is also on metoprolol and a st atin drug. 3. Anxiety. Will continue Ativan as needed. 4. Iodine allergy. He may need pretreatment prior to cardiac catheterization. Will defer to Cardio logy. COR STATUS: Full. ADMISSION STATUS: Will admit to observation. Anticipate discharge home tomorrow if cath is negative . DEEP VENOUS THROMBOSIS PROPHYLAXIS: He is low risk and being admitted to observation status, so will ambulate early. /[id number]/MODL
[2017-01-25] MEDS: METOPROLOL TARTRATE 25 MG TAB PO SCH (20:51)
[2017-01-25] MEDS: ENALAPRIL MALEATE 5 MG TAB PO SCH (20:51)
[2017-01-25] MEDS ORDERED: ATORVASTATIN CALCIUM 40 MG TAB PO SCH (21:00)
[2017-01-25] MEDS ORDERED: DOXEPIN HCL 10 MG CAP PO SCH (21:00)
[2017-01-25] MEDS ORDERED: TEMAZEPAM 15 MG CAP PO SCH (21:00)
[2017-01-26] MEDS ORDERED: DIAZEPAM 5 MG TAB PO ONE (08:42)
[2017-01-26] MEDS ORDERED: FAMOTIDINE 20 MG TAB PO ONE (08:42)
[2017-01-26] MEDS ORDERED: ACETAMINOPHEN 325 MG TAB PO PRN (08:42)
[2017-01-26] MEDS ORDERED: ASPIRIN EC 325 MG TAB PO ONE (08:42)
[2017-01-26] MEDS ORDERED: diphenhydrAMINE 25 MG CAP PO ONE (08:42)
[2017-01-26] MEDS ORDERED: NS 1,000 ML IV SCH ×2 (08:45→13:15)
[2017-01-26] MEDS ORDERED: PRASUGREL HCL 10 MG TAB PO SCH (09:00)
[2017-01-26] MEDS ORDERED: ASPIRIN 81 MG CHEWABLE TAB PO SCH (09:00)
[2017-01-26] MEDS: ENALAPRIL MALEATE 5 MG TAB PO SCH (09:45)
[2017-01-26] MEDS: METOPROLOL TARTRATE 25 MG TAB PO SCH (09:46)
[2017-01-26 10:11] LABS: % IMMATURE GRANULYOCYTES 0.3 % (0.0-1.1); ABSOLUTE IMMATURE GRANULOCYTES 0.02 10^3/uL (0.00-0.10); ADD DIFF? NO; ADD MORPH? NO; ADD SCAN? NO; ATYPICAL LYMPHOCYTE FLAG 0 (0-99); FRAGMENT RBC FLAG 0 (0-99); HEMATOCRIT 44.6 % (40.0-51.0); LEFT SHIFT FLG 0 (0-99); LIPEMIA HEMOLYSIS FLAG 80 (0-99); MEAN CELL HEMOGLOBIN 31.2 pg (27.9-34.1); MEAN CELL HEMOGLOBIN CONCENTR. 33.6 g/dL (32.4-36.7); MEAN CELL VOLUME 92.7 fL (81.5-99.8); MEAN PLATELET VOLUME 10.3 fL (8.7-11.7); PLATELET CLUMPS FLAG 10 (0-99); PLATELET COUNT 196 10^3/uL (150-400); RED BLOOD CELL COUNT 4.81 10^6/uL (4.40-6.38); RED CELL DISTRIBUTION WIDTH 12.9 % (11.5-15.2)
[2017-01-26 10:20] LABS: APTT 27.3 SEC (23.0-38.0); INR 1.06 (0.83-1.16); PROTIME(PATIENT) 13.7 SEC (12.0-15.0)
[2017-01-26 10:33] LABS: ANION GAP 13 mEq/L (8-16); CALCIUM 10.2 mg/dL (8.5-10.4); CARBON DIOXIDE 26 mEq/l (22-31); CHLORIDE 104 mEq/L (97-110); CHOLESTEROL 172 mg/dL (140-220); CREATININE 0.8 mg/dL (0.7-1.3); GLOMERULAR FILTRATION RATE > 60; GLUCOSE 92 mg/dL (70-100); HIGH DENSITY LIPOPROTEIN 40 mg/dL (40-65); LOW DENSITY LIPOPROTEIN 104 mg/dL (80-100); NON-HIGH DENSITY LIPOPROTEIN 132 mg/dL (90-129); POTASSIUM 4.5 mEq/L (3.5-5.2); SODIUM 143 mEq/L (134-144); TRIGLYCERIDE 141 mg/dL (40-150); VERY LOW DENSITY LIPOPROTEINS 28 mg/dL (8-25)
[2017-01-26] MEDS ORDERED: methylPREDNISolone SOD SUCC 125 MG/2 ML VIAL IVP ONE (11:00)
[2017-01-26] MEDS ORDERED: LIDOCAINE 1% 300 MG/30 ML SDV ONE (11:13)
--- NOTE | 2017-01-26 11:13 | PDPROPOC ---
Sedation Plan of Care Sedation Plan of Care: vital signs stable, mental status noted, patient educated of risks, benefits, alternatives, patient can tolerate sedation ASA Classification: ASA 2 Planned drugs: fentanyl, midazolam Mallampati Score: Class 2 Mallampati Reference Image: Patient passed 3-3-2 rule?: Yes
--- NOTE | 2017-01-26 11:13 | PDHPUP ---
History & Physical Update H&P update statement: This history and physical update is based on an assessment of the patient which was completed after admission or registration (within 24 hours), but prior to the surgery/procedure. H&P update: H&P reviewed & patient examined, no change in patient's condition since H&P completed
[2017-01-26] MEDS ORDERED: HEPARIN 10,000 UNIT/10 ML MDV ONE (11:14)
[2017-01-26] MEDS ORDERED: VERAPAMIL 5 MG/2 ML VIAL ONE (11:14)
[2017-01-26] MEDS ORDERED: IOPAMIDOL (ISOVUE-370) 150 ML BTL IV ONE (11:14)
[2017-01-26] MEDS ORDERED: fentaNYL 100 MCG/2 ML INJ ONE ×2 (11:14→12:17)
[2017-01-26] MEDS ORDERED: MIDAZOLAM 2 MG/2 ML VIAL ONE ×2 (11:14→12:14)
--- NOTE | 2017-01-26 11:24 | ECHO ---
[email or web address] [address] [address] Main: [phone] Fax: Transthoracic Echocardiogram Name: AGUEDA AUGUSTE MR#: [id number] Study Date: 01/26/2017 Study Time: 10:09 AM Date of : 1960 Age: 56 year(s) Height: 175.3 cm (69 in.) Weight: 80.29 kg (177 lb.) BSA: 1.96 m2 Gender: Male Examination: Echo Indication: Chest pain/hx CAD/PCI to LAD 2008 and RCA 2016 Image Quality: Contrast: Requested by: Pelon Melara BP: 120 mmHg/73 mmHg Heart Rate: Rhythm: Indication: Chest pain/hx CAD/PCI to LAD 2008 and RCA 2016 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 Normal global systolic LV function. There may be subtle lateral hypokinesis Normal size right ventricle. Normal RV function. Trivial to mild mitral regurgitation. Mild aortic valve regurgitation is present. Compared with 07/2016 study overall similar findings Measurements: Chambers Valvular Assessment AV/MV Valvular Assessment TV/PV Normal Normal Normal Name Value Range Name Value Range Name Value Range Ao Poala (MM): 3.7 cm (2.2 cm-3.7 AV meanP mmHg ( - ) TR Vmax: 1.99 mm/s ( - ) cm) AR (PHT): 530 ms ( - ) TR PGmax: 16 mmHg ( - ) IVSd (2D): 0.7 cm (0.6 cm-1.1 MV E Vmax: 0.59 m/s ( - ) syst. PAP: 21 mmHg ( - ) cm) MV A Vmax: 0.76 m/s ( - ) LVDd (2D): 5.6 cm (4.2 cm-5.9 MV E/A: 0.78 ( - ) cm) LVDs (2D): 3.1 cm (2.1 cm-4 cm) LVPWd (2D): 0.7 cm (0.6 cm-1 cm) LVEF (MOD4): 67 % (>=55 %) Continued Measurements: Chambers Valvular Assessment AV/MV Valvular Assessment TV/PV Name Value Name Value Name Value Patient: AGUEDA AUGUSTE Study Date: 01/26/2017 Page 1 of 2 10:09 AM LADs: 3.7 cm MV E/E' Septal: 9.70 CVP (est.): 5 mmHg LADs Lon.5 cm MV E/E' Lateral: 6.30 LA Area: 20.1 cm2 AR Vmax: 4.78 cm/s LA Volume: 58 ml LA Volume Index: 29.6 ml/m2 Findings: Left Ventricle: Normal size left ventricle. Normal global systolic LV function. EF is 67 %. There may be subtle lateral hypokinesis Right Ventricle: Normal size right ventricle. Normal RV function. Left Atrium: The left atrium is normal in size. Right Atrium: The right atrium is normal in size. Mitral Valve: The mitral valve is normal in appearance and function. Trivial to mild mitral regurgitation. Aortic Valve: The aortic valve is normal in appearance and function. Mild aortic valve regurgitation is present. Tricuspid Valve: The tricuspid valve is normal in appearance and function. Trivial tricuspid valve regurgitation. Pulmonic Valve: The pulmonic valve is normal in appearance and function. Aorta: The aorta is normal. Pericardium: No pericardial effusion. (No Signature Object) Patient: AGUEDA AUGUSTE Study Date: 01/26/2017 Page 2 of 2 10:09 AM [id number]
[2017-01-26] MEDS ORDERED: HYDROCODONE/APAP 5/325 TAB PO PRN (13:08)
[2017-01-26] MEDS ORDERED: ATROPINE SULFATE 1 MG/10 ML SYR IVP PRN (13:08)
--- NOTE | 2017-01-26 13:16 | PDDXCAT ---
Diagnostic Cath Note - . Date: 01/26/17 Legal Advisor: Carlos Alberto Indication: other (Chest pain, CAD with prior PCIs, and a history of unreliable stress test results.) - Procedure Access: right wrist Procedure: left heart catheterization, coronary angiography, left ventriculogram - Materials Left Heart Cath size: 5F Left Heart Cath materials: other ([employer] and [employer]) - Findings-Left Heart Catheterization LM: Normal. LAD: Fluoroscopy reveals the presence of a previously stented segment in the mid -LAD. Angiography reveals mild irregularities in the proximal LAD, a widely patent stent, and minimal irregularities throughout the remainder of the LAD and its diagonal branches. LCX: Minimal irregularities. RCA: Fluoroscopy reveals previously placed stents spanning from the proximal to distal RCA. Angiography reveals that the entire stented segment is widely patent leading to a very small posterior descending branch. The continuation of the RCA, supplying the posterolateral system, remains totally occluded with the posterolateral branches being filled by [id number] collaterals. (unchanged from July 2016) EDP: 17 mmHg LVEF: 60% Wall motion: Normal Estimated blood loss: <50ml Closure method: TR Band Assessment: 1) Normal LV systolic function. 2) CAD as described above. Plan: Aggressive secondary prevention. Patient Problems: Problems Problem Status Onset Chest pain Acute
--- NOTE | 2017-01-26 15:07 | ASMTCASEMG ---
Living Arrangements What is your living Answers: Alone arrangement? Who do you live with? Type Of Residence What kind of residence do Answers: House you live in? Discharge Plan Comments Coordination Status Comments Notes: Chart reivewed and spoke w/ LANDON Grimm, pt is a 56 y/o man admitted w/ chest pain and a hx of CAD. Pt will most likely discharge independent when medically stable. CM available for changes. Date Signed: 01/26/2017 03:06 PM Electronically Signed By:ALISA Carpenter
[2017-01-26 17:00] VITALS: TEMP 97.9
[2017-01-26 17:16] VITALS: BP 132/77; PULSE 77; RESP 20; O2SAT 94
--- NOTE | 2017-01-26 22:03 | GDS ---
[f rep st] DISCHARGE SUMMARY DISCHARGE DIAGNOSES: 1. Chest pain, improved. 2. Coronary artery disease, status post stenting, most recently in July 2016. 3. Anxiety. CONSULTANTS: Dr. Bhanu Carcamo, Cardiology. IMAGING STUDIES/PROCEDURES: 1. Echocardiogram January 26, 2017, showed a normal left ventricle with ejection fraction of 67% w ith possible subtle lateral hypokinesis, normal RV function, trace to mild mitral regurgitation, mild aortic regurgitation, and no pericardial effusion. 2. Left heart catheterization January 26, 2017, showed a widely patent stent in the LAD with minim al irregularities in the left circumflex, as well as widely patent stents in the RCA. The continuati on of the RCA supplying the posterolateral system remained totally occluded with the posterolateral b ranches being filled by [id number] collaterals, which is unchanged from July 2016. Normal left v entricular systolic function was noted. HISTORY: For details, please see dictated history and physical dated January 25, 2017. In brief, the patient is a 56-year-old male with a history of coronary artery disease requiring multiple cardia c stents in the past, most recently July 2016. He presented to the emergency department with recurr ence of chest pain similar to his prior angina. He was admitted to the hospital for further evaluati on. HOSPITAL COURSE: Given the uncertain quality of his pain and a history of false negative stress test in the past, the patient underwent left heart catheterization with results above. There was no evid ence of progression of his coronary artery disease, and he will continue with aggressive secondary pr evention. DISPOSITION: Patient is discharged home in stable condition. FOLLOWUP: 1. Dr. Rashida Calvillo, [facility]. 2. Dr. Magalie Hurst, primary care. DISCHARGE MEDICATIONS: Please see [employer] for completed outpatient medication list. Patient will c ontinue all outpatient medications as previously prescribed includin. Dual antiplatelet therapy with aspirin and Effient. 2. Metoprolol 25 mg p.o. b.i.d. 3. Doxepin 10 mg p.o. q.h.s. 4. Enalapril 5 mg p.o. b.i.d. 5. [place] 5/325 one to two tablets p.o. q.6 hours p.r.n. 6. Temazepam 15 mg p.o. q.h.s. 7. Atorvastatin 80 mg p.o. q.h.s. 8. Aspirin 81 mg p.o. daily. 9. Multivitamin daily. 10. Lorazepam 1 mg p.o. daily p.r.n. /[id number]/MODL
== END 2017-01-26 18:40 | disposition home or self-care (01) ==
LOC: F2W 16:53
PROVIDERS: ADMIT Internal Medicine; ATTEND Hospitalist
DX: R07.89 Other chest pain (principal); I25.10 Atherosclerotic heart disease of native coronary artery without angina pectoris; Z95.5 Presence of coronary angioplasty implant and graft; F41.8 Other specified anxiety disorders; Z91.041 Radiographic dye allergy status
CPT/HCPCS: C1769; G0378; J1644; J2250; J3010; Q9967